=== PATIENT | female | born 1990 | race Caucasian/White ===

== ENCOUNTER 2020-11-19 12:06 | Inpatient (IN) ==
[2020-11-19] MEDS ORDERED: *HR* Nalbuphine 10 MG/ML AMPUL IV PRN (12:25)
[2020-11-19] MEDS ORDERED: Famotidine 20 MG/2 ML VIAL IVP PRN (12:25)
[2020-11-19] MEDS ORDERED: Metoclopramide 10 MG/2 ML VIAL IVP PRN (12:25)
[2020-11-19] MEDS ORDERED: Azithromycin 500 MG in 0.9 % Sodium Chloride 250 ML IVPB PRN (12:25)
[2020-11-19] MEDS ORDERED: Naloxone 0.4 MG/ML INJ IVP PRN (12:25)
[2020-11-19] MEDS ORDERED: Ondansetron 4 MG/2 ML VIAL IVP PRN (12:25)
[2020-11-19] MEDS ORDERED: EPHEDrine 50 MG/ML VIAL IVP PRN (12:43)
[2020-11-19] MEDS ORDERED: Epidural Premix (fent/bupiv) 110 ML EP SCH (12:45)
[2020-11-19] MEDS: Ringers Solution, Lactated 1,000 ML IVC SCH ×2 (13:07→18:52)
[2020-11-19 13:32] LABS: Basophils # 0.1 K/mcL (0.0-0.2); Basophils % 0.3 %; Eosinophils # 0.1 K/mcL (0.0-0.6); Eosinophils % 0.7 %; Hematocrit 33.7 % (35.3-44.9); Hemoglobin 11.9 g/dL (11.5-15.4); Immature Granulocytes % 0.7 % (0-4); Lymphocytes # 1.6 K/mcL (0.6-4.6); Lymphocytes % 10.3 %; Mean Corpuscular HGB Conc 35.3 g/dL (31.6-35.5); Mean Corpuscular Hemoglobin 30.4 pg (28.0-33.3); Mean Corpuscular Volume 86.2 fL (83.0-100.0); Mean Platelet Volume 11.7 fL (9.4-12.4); Monocytes # 0.7 K/mcL (0.0-1.3); Monocytes % 4.6 %; Neutrophils # 12.5 K/mcL (1.6-8.9); Platelet Count 201 K/mcL (140-400); Red Blood Count 3.91 M/mcL (3.82-4.97); Red Cell Distribution Width 13.4 % (11.5-14.5); Segmented Neutrophils % 83.4 %
[2020-11-19 13:38] LABS: Amphetamine Screen,Urine Negative ng/mL (Cutoff=1000); Barbiturate Screen,Urine Negative ng/mL (Cutoff=200); Benzodiazepines Screen,Urine Negative ng/mL (Cutoff=200); Cannabinoid Screen,Urine Negative ng/mL (Cutoff = 50); Cocaine Screen,Urine Negative ng/mL (Cutoff= 300); Opiate Screen,Urine Negative ng/mL (Cutoff=300); Phencyclidine Screen,Urine Negative ng/mL (Cutoff=25)
[2020-11-19] MEDS ORDERED: Oxytocin 20 units/ LR 1000 mL 20 UNIT/1,000 ML BAG IVC ONE (23:27)
[2020-11-20] MEDS ORDERED: *HR* FentaNYL (PF) 100 MCG/2 ML VIAL ONE (01:12)
[2020-11-20] MEDS ORDERED: Ropivacaine/PF 0.2% 20 ML VIAL ONE (01:13)
[2020-11-20] MEDS ORDERED: *HR* Ropivacaine/PF 0.5% 20 ML VIAL ONE (01:13)
[2020-11-20] MEDS ORDERED: miSOPROStoL 100 MCG TABLET RC ONE (04:53)
[2020-11-20] MEDS ORDERED: Methylergonovine 0.2 MG/ML AMPUL IM ONE (04:53)
[2020-11-20] MEDS ORDERED: Benzocaine/Menthol 56 GM AEROSOL SPRAY TP PRN (05:43)
[2020-11-20] MEDS ORDERED: Lanolin 7 G OINT...G. TP PRN (05:43)
[2020-11-20] MEDS ORDERED: Oxytocin 20 units/ LR 1000 mL 20 UNIT/1,000 ML BAG IVC SCH (05:45)
[2020-11-20] MEDS ORDERED: Ondansetron 4 MG/2 ML VIAL IVP PRN (07:40)
[2020-11-20] MEDS: Prenatal Vit/FA 1 EACH TABLET PO SCH (08:00)
[2020-11-20] MEDS: Ibuprofen 600 MG TABLET PO PRN ×2 (08:35→15:47)
[2020-11-20] MEDS: Acetaminophen 325 MG TABLET PO PRN ×2 (08:44→22:20)
[2020-11-20] MEDS: Ringers Solution, Lactated 1,000 ML IVC SCH (10:49)
[2020-11-21 04:40] LABS: Basophils # 0.1 K/mcL (0.0-0.2); Basophils % 0.3 %; Eosinophils # 0.2 K/mcL (0.0-0.6); Eosinophils % 0.9 %; Hemoglobin 10.9 g/dL (11.5-15.4); Immature Granulocytes % 0.8 % (0-4); Lymphocytes # 2.4 K/mcL (0.6-4.6); Lymphocytes % 12.9 %; Mean Corpuscular HGB Conc 34.1 g/dL (31.6-35.5); Mean Corpuscular Hemoglobin 29.5 pg (28.0-33.3); Mean Corpuscular Volume 86.7 fL (83.0-100.0); Mean Platelet Volume 12.2 fL (9.4-12.4); Monocytes # 1.2 K/mcL (0.0-1.3); Monocytes % 6.3 %; Neutrophils # 14.6 K/mcL (1.6-8.9); Platelet Count 179 K/mcL (140-400); Red Blood Count 3.69 M/mcL (3.82-4.97); Red Cell Distribution Width 13.4 % (11.5-14.5); Segmented Neutrophils % 78.8 %; White Blood Count 18.6 K/mcL (4.3-11.1)
[2020-11-21] MEDS: Ibuprofen 600 MG TABLET PO PRN (04:50)
[2020-11-21] MEDS: Acetaminophen 325 MG TABLET PO PRN (04:50)
[2020-11-21 07:51] VITALS: BP 100/68; PULSE 60; TEMP 98.1; O2SAT 97
[2020-11-21] MEDS: Prenatal Vit/FA 1 EACH TABLET PO SCH (07:51)
== END 2020-11-21 15:51 | disposition home or self-care (01) | DRG 806 ==
LOC: 1NENULAB 12:06 → 1NENUOBS 11-20 10:44
PROVIDERS: ADMIT Advanced Practice Midwife; ATTEND Advanced Practice Midwife